=== PATIENT | female | born 1970 | race Caucasian/White ===

== ENCOUNTER 2017-01-08 02:48 | Emergency (ER) | payer OTHER ==
--- NOTE | ~2017-01-08 | EKG ---
PATIENT: [address] UNIT #: [id number] Ventricular Rate: 84 BPM Atrial Rate: 84 BPM P-R Interval: 130 ms QRS Duration: 84 ms Q-T Interval: 390 ms QTC Calculation(Bezet): 460 ms P Prewitt: 44 degrees Calculated R Prewitt: 14 degrees Calculated T Prewitt: 27 degrees Diagnosis Line: Normal sinus rhythm with sinus arrhythmia Diagnosis Line: Normal ECG Diagnosis Line: When compared with ECG of 27-DEC-2015 12:32, Diagnosis Line: No significant change was found Diagnosis Line: Confirmed by KARINA ALLISON MD ([id number]) on Diagnosis Line: 01/08/2017 12:44:21 PM INTERPRETING MD: SALMA
[~2017-01-08 02:48] MED LIST: ALPRAZOLAM PO; AMBIEN PO; AUGMENTIN PO; CIPRO PO; ERYTHROMYC3.5 GM OPT OD; FLEXERIL PO; FLEXERIL10 MG PO; HYDROCODON-ACE1 EAC7 PO; K-DUR20 ME1 DOB; LASIX PO; LORTAB 7.5-5001 TAB; LOVENOX40 MG/0.4 INJ; NAPROSYN250 M1 PO; NAPROSYN500 MG PO; NO MEDICATIONS; PERCOCET5/325 PO; PHENERGAN25 MG; ROBITUSSIN A-C-S1 ML PO; SENNA S TABLET1 TAB PO; TAMOXIFEN CITRA20 MG PO; TAMOXIFEN10 MG PO; TEMAZEPAM30 MG PO; TOBRADEX EYE O3.5 G1 OP; VICODIN PO; VITAMIN B-12; XANAX1 MG PO; ZITHROMAX PO; ZYVOX600 MG PO
[2017-01-08 03:03] LABS: BASOPHIL# 0.1 X10e3 (0-0.3); BASOPHIL% 1.2 % (0-2.5); EOSINOPHIL% 0.4 % (0.0-7.0); HEMATOCRIT 41.7 % (35.0-45.0); HEMOGLOBIN 13.8 gm/dL (12.0-16.0); LYMPHOCYTE# 3.3 X10e3 (1.0-3.5); MEAN CORPUSCULAR HEMOGLOBIN 28.1 PG (28-34); MEAN CORPUSCULAR HGB CONC 33.1 g/dL (30-36); MEAN PLATELET VOLUME 9.3 FL (6.5-11.5); MONOCYTE# 0.7 X10e3 (0-1.0); MONOCYTE% 7.9 % (3.0-12.0); NEUTROPHIL# 4.6 X10e3 (1.5-7.1); NEUTROPHIL% 52.5 % (40-75); PLATELET COUNT 164 X10e3 (140-420); RED CELL DISTRIBUTION WIDTH 13.5 % (11.0-15.5); WHITE BLOOD COUNT 8.7 X10e3 (4.0-10.5)
[2017-01-08 03:05] LABS: DIFF IND NO
[2017-01-08 03:10] LABS: POC - CKMB <1.0 ng/mL (0.0-7.9); POC - TROPONIN <0.05 ng/mL (<=0.05)
[2017-01-08 03:27] LABS: ALBUMIN SERUM 4.3 g/dL (3.5-5.0); BILIRUBIN,TOTAL 0.8 mg/dL (0.2-2.0); CREATININE SERUM 0.8 mg/dL (0.6-1.4); GLOM FILT RATE Estimated 89.1 mL/min (>60); POTASSIUM 3.9 mmol/L (3.5-5.1); PROTEIN TOTAL SERUM 7.4 g/dL (6.0-8.3)
[2017-01-08 04:51] LABS: POC - CKMB <1.0 ng/mL (0.0-7.9); POC - TROPONIN <0.05 ng/mL (<=0.05)
== END 2017-01-08 05:53 | disposition home or self-care (01) ==
LOC: CED 02:48
PROVIDERS: Emergency Medicine
DX: R07.9 Chest pain, unspecified (principal)
CPT/HCPCS: 36415; 80053; 82553; 84484; 84703; 85025; 93005; 96374; 99284; J2060